=== PATIENT | male | born 1955 | race African-American/Black ===

== ENCOUNTER 2023-09-20 09:57 | Emergency (ER) | payer MEDICARE, OTHER ==
[2023-09-20] MEDS ORDERED: Labetalol HCl 100 MG/20 ML VIAL ONE (10:38)
[2023-09-20 10:57] LABS: #Eosinphils 0.2 10x3/uL (0.0-0.5); #Monocytes 0.5 10x3/uL (0.0-1.1); #Neutrophils 2.5 10x3/uL (1.5-8.4); %Basophils 0.9 % (0.0-2.0); %Eosinophils 4.5 % (0.0-6.0); %Lymphocytes 29.7 % (18.0-47.0); %Monocytes 11.6 % (0.0-10.0); %Neutrophils 53.1 % (40.0-75.0); Hematocrit 32.3 % (38.8-50.0); Hemoglobin 10.4 g/dL (13.5-17.5); Mean Corpuscular HGB CONC 32.2 g/dL (32.0-36.0); Mean Corpuscular Hemoglobin 27.4 pg (27.0-33.0); Mean Platelet Volume 10.2 fl (7.4-10.4); Platelet Count 186 10x3/uL (150-450); RBC Distribution Width 15.8 % (11.5-14.5); White Blood Cell (WBC) Count 4.6 10x3/uL (3.5-10.5)
[2023-09-20 11:21] LABS: ALT (SGPT) 47 U/L (8-55); AST (SGOT) 53 U/L (5-34); Albumin 3.3 g/dL (3.4-4.8); Alkaline Phosphatase 238 U/L (40-110); Anion Gap 13 mmol/L (10-20); BUN (Urea Nitrogen) 27 mg/dL (8.4-25.7); Bilirubin, Total 0.4 mg/dL (0.2-1.2); Calc. Creatinine Clearance 0 mL/min (70-130); Calcium 8.6 mg/dL (7.8-10.44); Carbon Dioxide 22 mmol/L (23-31); Chloride 108 mmol/L (98-107); Estimated GFR 62; Globulin 3.9 g/dL (2.4-3.5); Glucose 116 mg/dL (80-115); Potassium 4.3 mmol/L (3.5-5.1); Protein, Total 7.2 g/dL (5.8-8.1); Sodium 139 mmol/L (136-145)
[2023-09-20] MEDS ORDERED: Furosemide 40 MG (4 mL) VIAL ONE (11:58)
[2023-09-20 12:30] LABS: Troponin I 0.048 ng/mL (< 0.028)
== END 2023-09-20 12:57 | disposition home or self-care (01) ==
LOC: CSHERS 09:57
DX: I11.0 Hypertensive heart disease with heart failure (principal); I50.9 Heart failure, unspecified; E11.9 Type 2 diabetes mellitus without complications; F17.210 Nicotine dependence, cigarettes, uncomplicated
CPT/HCPCS: 71045; 80053; 83880; 84484; 85025; 93005; 96374; J1940

== ENCOUNTER 2024-07-08 13:09 | Inpatient (IN) | payer MEDICARE, OTHER ==
[2024-07-08] MEDS ORDERED: Furosemide 40 MG (4 mL) VIAL ONE (13:37)
[2024-07-08] MEDS ORDERED: Nitroglycerin 2% Ointment 1 INCH/1 GM Packet ONE (13:38)
[2024-07-08] MEDS ORDERED: Aspirin Chewable 81 MG TAB ONE (13:38)
[2024-07-08 13:57] LABS: Bilirubin Neg (Negative); Blood, Urine Negative (Negative); Clarity Cloudy (Clear); Glucose, Urine (Dipstick) >=1000 mg/dL (Negative); Ketone, Urine 15 mg/dL (Negative); Leukocyte Negative (Negative); Nitrite Negative (Negative); Protein, Urine (Dipstick) 100 mg/dl (Neg-Trace); Urobilinogen Normal mg/dL (Less than 2)
[2024-07-08 13:59] LABS: #Basophils 0.03 10x3/uL (0.0-0.2); #Eosinophils 0.18 10x3/uL (0.0-0.5); #Monocytes 0.61 10x3/uL (0.0-1.1); #Neutrophils 3.19 10x3/uL (1.5-8.4); %Basophils 0.6 % (0.0-2.0); %Eosinophils 3.3 % (0.0-6.0); %Lymphocytes 25.6 % (18.0-47.0); %Monocytes 11.3 % (0.0-10.0); %Neutrophils 58.8 % (40.0-75.0); Hematocrit 37.3 % (38.8-50.0); Hemoglobin 11.8 g/dL (13.5-17.5); Mean Corpuscular HGB CONC 31.6 g/dL (32.0-36.0); Mean Corpuscular Hemoglobin 28.2 pg (27.0-33.0); Mean Corpuscular Volume 89.2 fL (81.2-95.1); Mean Platelet Volume 10.7 fL (7.4-10.4); Platelet Count 173 10x3/uL (150-450); RBC Distribution Width 15.8 % (11.5-14.5); Red Blood Cell (RBC) Count 4.18 10x6/uL (4.32-5.72); White Blood Cell (WBC) Count 5.4 10x3/uL (3.5-10.5)
[2024-07-08 14:15] LABS: ALT (SGPT) 39 U/L (8-55); AST (SGOT) 50 U/L (5-34); Albumin 3.4 g/dL (3.4-4.8); Alkaline Phosphatase 116 U/L (40-110); Anion Gap 17 mmol/L (10-20); BUN (Urea Nitrogen) 22 mg/dL (8.4-25.7); Bilirubin, Total 0.7 mg/dL (0.2-1.2); Calc. Creatinine Clearance 0 mL/min (70-130); Calcium 8.9 mg/dL (7.8-10.44); Carbon Dioxide 21 mmol/L (23-31); Chloride 110 mmol/L (98-107); Estimated GFR 51; Globulin 3.6 g/dL (2.4-3.5); Glucose 120 mg/dL (80-115); Potassium 4.3 mmol/L (3.5-5.1); Sodium 144 mmol/L (136-145)
[2024-07-08 14:27] LABS: CAUTI Indications for Culture Urological Procedure
[2024-07-08 14:28] LABS: Bacteria/HPF 4+ HPF (None Seen); RBC/HPF None Seen HPF (0-3); Squamous Epithelial None Seen HPF (0-3); WBC/HPF 0-3 HPF (0-3)
[2024-07-08 14:29] LABS: Urine Culture Reflex Yes Yes
[2024-07-08 14:48] LABS: Critical Call Chem Troponin I SJOS.OD AT 1448
[2024-07-08] MEDS ORDERED: Dextrose 50% Abboject 50 ML SYRINGE SLOW IVP PRN (16:40)
[2024-07-08] MEDS ORDERED: Glucagon 1 MG/ML KIT IM PRN (16:40)
[2024-07-08] MEDS ORDERED: Dextrose 5% in Water 1,000 ML IV PRN (16:40)
[2024-07-08] MEDS ORDERED: Carvedilol 25 MG TAB ONE (17:13)
[2024-07-08] MEDS: Carvedilol 25 MG TAB PO SCH (18:15)
[2024-07-08] MEDS: Spironolactone 25 MG TAB PO SCH (18:23)
[2024-07-08] MEDS: Sacubitril 49 MG/Valsartan 51 MG TABLET PO SCH (21:59)
[2024-07-09 03:20] LABS: #Basophils 0.04 10x3/uL (0.0-0.2); #Eosinophils 0.24 10x3/uL (0.0-0.5); #Monocytes 0.68 10x3/uL (0.0-1.1); %Basophils 0.8 % (0.0-2.0); %Eosinophils 4.8 % (0.0-6.0); %Lymphocytes 25.7 % (18.0-47.0); %Monocytes 13.7 % (0.0-10.0); %Neutrophils 54.6 % (40.0-75.0); Hemoglobin 10.5 g/dL (13.5-17.5); Mean Corpuscular HGB CONC 32.8 g/dL (32.0-36.0); Mean Corpuscular Hemoglobin 29.1 pg (27.0-33.0); Mean Corpuscular Volume 88.6 fL (81.2-95.1); Platelet Count 157 10x3/uL (150-450); RBC Distribution Width 15.8 % (11.5-14.5); Red Blood Cell (RBC) Count 3.61 10x6/uL (4.32-5.72)
[2024-07-09 03:44] LABS: Anion Gap 18 mmol/L (10-20); BUN (Urea Nitrogen) 29 mg/dL (8.4-25.7); Calc. Creatinine Clearance 58 mL/min (70-130); Calcium 8.7 mg/dL (7.8-10.44); Carbon Dioxide 20 mmol/L (23-31); Chloride 109 mmol/L (98-107); Estimated GFR 42; Glucose 195 mg/dL (80-115); Potassium 3.9 mmol/L (3.5-5.1); Sodium 143 mmol/L (136-145)
[2024-07-09] MEDS ORDERED: hydrALAZINE 25 MG TAB ONE (04:16)
[2024-07-09] MEDS: hydrALAZINE 25 MG TAB PO PRN (04:24)
[2024-07-09] MEDS ORDERED: Furosemide 40 MG (4 mL) VIAL ONE ×2 (05:26→13:13)
[2024-07-09] MEDS: Furosemide 40 MG (4 mL) VIAL SLOW IVP SCH (05:38)
[2024-07-09 06:22] VITALS: BMI 27.1
[2024-07-09] MEDS: Spironolactone 25 MG TAB PO SCH (08:06)
[2024-07-09] MEDS ORDERED: Enoxaparin 40 MG (0.4 mL) SYRINGE ONE (08:53)
[2024-07-09] MEDS ORDERED: Carvedilol 25 MG TAB ONE (08:54)
[2024-07-09] MEDS: Sotalol HCl 80 MG TAB PO SCH (09:06)
[2024-07-09] MEDS: Enoxaparin 40 MG (0.4 mL) SYRINGE SC SCH (09:07)
[2024-07-09] MEDS: Insulin Lispro 100 UNIT/ML 10 ML VIAL SC PRN (16:29)
[2024-07-10 04:22] LABS: Anion Gap 17 mmol/L (10-20); BUN (Urea Nitrogen) 31 mg/dL (8.4-25.7); Calc. Creatinine Clearance 61 mL/min (70-130); Calcium 8.9 mg/dL (7.8-10.44); Carbon Dioxide 24 mmol/L (23-31); Chloride 105 mmol/L (98-107); Estimated GFR 45; Glucose 163 mg/dL (80-115); Potassium 3.9 mmol/L (3.5-5.1); Sodium 142 mmol/L (136-145)
[2024-07-10] MEDS: cefTRIAXone\\ROCEPHIN 1 GM in Sodium Chloride 0.9% 100 ML IVPB SCH (08:57)
[2024-07-10] MEDS: Aspirin 81 mg Enteric Coated Tablet PO SCH (08:58)
[2024-07-10] MEDS: hydrALAZINE 25 MG TAB PO SCH (14:43)
[2024-07-10] MEDS: Insulin Lispro 100 UNIT/ML 10 ML VIAL SC PRN (20:43)
[2024-07-11 04:35] LABS: Anion Gap 16 mmol/L (10-20); BUN (Urea Nitrogen) 30 mg/dL (8.4-25.7); Calc. Creatinine Clearance 60 mL/min (70-130); Calcium 8.8 mg/dL (7.8-10.44); Carbon Dioxide 24 mmol/L (23-31); Chloride 103 mmol/L (98-107); Estimated GFR 46; Glucose 145 mg/dL (80-115); Potassium 3.5 mmol/L (3.5-5.1); Sodium 139 mmol/L (136-145)
[2024-07-11 12:17] VITALS: BP 151/84; TEMP 98.3
== END 2024-07-11 14:30 | disposition home or self-care (01) | DRG 291 ==
LOC: CSHERS 13:09 → CSHERHOLD 15:36 → CSHTELE 07-09 17:56
PROVIDERS: ADMIT Internal Medicine; ATTEND Internal Medicine
DX: I11.0 Hypertensive heart disease with heart failure (principal); I50.23 Acute on chronic systolic (congestive) heart failure; E11.9 Type 2 diabetes mellitus without complications; I25.10 Atherosclerotic heart disease of native coronary artery without angina pectoris; Z88.8 Allergy status to other drugs, medicaments and biological substances; Z85.46 Personal history of malignant neoplasm of prostate; Z79.84 Long term (current) use of oral hypoglycemic drugs; Z79.4 Long term (current) use of insulin; Z79.899 Other long term (current) drug therapy; Z79.82 Long term (current) use of aspirin; Z95.810 Presence of automatic (implantable) cardiac defibrillator; N28.9 Disorder of kidney and ureter, unspecified; E78.2 Mixed hyperlipidemia; Z87.891 Personal history of nicotine dependence
CPT/HCPCS: 36415; 36416; 71045; 80048; 80053; 81001; 83880; 84484; 85025; 87077; 87086; 87186; 93005; 96374; J0696; J1650; J1815; J1940

== ENCOUNTER 2024-08-17 05:30 | Inpatient (IN) | payer MEDICARE, OTHER ==
[2024-08-17] MEDS ORDERED: Furosemide 40 MG (4 mL) VIAL ONE ×2 (05:38→15:31)
[2024-08-17] MEDS ORDERED: Nitroglycerin 2% Ointment 1 INCH/1 GM Packet ONE (05:39)
[2024-08-17 05:49] LABS: #Basophils 0.05 10x3/uL (0.0-0.2); #Eosinophils 0.16 10x3/uL (0.0-0.5); #Monocytes 0.54 10x3/uL (0.0-1.1); #Neutrophils 2.92 10x3/uL (1.5-8.4); %Basophils 0.9 % (0.0-2.0); %Lymphocytes 30.5 % (18.0-47.0); %Monocytes 10.2 % (0.0-10.0); Hematocrit 36.4 % (38.8-50.0); Hemoglobin 12.1 g/dL (13.5-17.5); Mean Corpuscular HGB CONC 33.2 g/dL (32.0-36.0); Mean Corpuscular Hemoglobin 30.1 pg (27.0-33.0); Mean Corpuscular Volume 90.5 fL (81.2-95.1); Mean Platelet Volume 10.7 fL (7.4-10.4); Platelet Count 202 10x3/uL (150-450); RBC Distribution Width 15.5 % (11.5-14.5); Red Blood Cell (RBC) Count 4.02 10x6/uL (4.32-5.72); White Blood Cell (WBC) Count 5.31 10x3/uL (3.5-10.5)
[2024-08-17 06:04] LABS: ALT (SGPT) 14 U/L (Less than 45); AST (SGOT) 30 U/L (11-34); Alkaline Phosphatase 118 U/L (40-110); Anion Gap 17 mmol/L (10-20); BUN (Urea Nitrogen) 30 mg/dL (8.4-25.7); Bilirubin, Total 0.4 mg/dL (0.3-1.2); Calc. Creatinine Clearance 0 mL/min (70-130); Calcium 8.8 mg/dL (7.8-10.44); Carbon Dioxide 16 mmol/L (23-31); Chloride 112 mmol/L (98-107); Estimated GFR 40; Globulin 4.2 g/dL (2.4-3.5); Glucose 196 mg/dL (80-115); Protein, Total 7.2 g/dL (5.8-8.1); Sodium 141 mmol/L (136-145)
[2024-08-17] MEDS ORDERED: hydrALAZINE 20 MG/ML VIAL ONE ×2 (06:23→15:31)
[2024-08-17 06:31] LABS: Critical Call Chem Troponin I NUR.AEB@0630; Troponin I 0.588 ng/mL (< 0.028)
[2024-08-17] MEDS ORDERED: Aspirin Chewable 81 MG TAB ONE (06:37)
[2024-08-17] MEDS: Sacubitril 24MG/Valsartan 26 MG TAB PO SCH (09:35)
[2024-08-17] MEDS: Empagliflozin 10 MG TAB PO SCH (09:51)
[2024-08-17] MEDS ORDERED: Dextrose 5% in Water 1,000 ML IV PRN (10:07)
[2024-08-17] MEDS ORDERED: Glucagon 1 MG/ML KIT IM PRN (10:07)
[2024-08-17] MEDS ORDERED: Dextrose 50% Abboject 50 ML SYRINGE SLOW IVP PRN (10:07)
[2024-08-17] MEDS: Heparin 5,000 UNITS/ML VIAL SC SCH (15:31)
[2024-08-17] MEDS: Furosemide 40 MG (4 mL) VIAL SLOW IVP SCH (15:31)
[2024-08-17] MEDS: hydrALAZINE 20 MG/ML VIAL SLOW IVP PRN (15:32)
[2024-08-17] MEDS ORDERED: hydrALAZINE 20 MG/ML VIAL SLOW IVP PRN (17:45)
[2024-08-17] MEDS: hydrALAZINE 20 MG/ML VIAL SLOW IVP SCH (18:25)
[2024-08-17] MEDS: Atorvastatin Calcium 40 MG TAB PO SCH (21:12)
[2024-08-17] MEDS: Carvedilol 25 MG TAB PO SCH (21:12)
[2024-08-17] MEDS: Acetaminophen 325 MG TAB PO PRN (21:40)
[2024-08-17] MEDS: Insulin Lispro 100 UNIT/ML 10 ML VIAL SC PRN (21:53)
[2024-08-18 04:46] LABS: #Basophils 0.03 10x3/uL (0.0-0.2); #Eosinophils 0.12 10x3/uL (0.0-0.5); #Monocytes 0.61 10x3/uL (0.0-1.1); #Neutrophils 2.31 10x3/uL (1.5-8.4); %Basophils 0.7 % (0.0-2.0); %Eosinophils 2.7 % (0.0-6.0); %Lymphocytes 30.2 % (18.0-47.0); %Monocytes 13.8 % (0.0-10.0); %Neutrophils 52.1 % (40.0-75.0); Hematocrit 35.2 % (38.8-50.0); Hemoglobin 11.8 g/dL (13.5-17.5); Mean Corpuscular HGB CONC 33.5 g/dL (32.0-36.0); Mean Corpuscular Hemoglobin 28.8 pg (27.0-33.0); Mean Corpuscular Volume 85.9 fL (81.2-95.1); Mean Platelet Volume 11.1 fL (7.4-10.4); Platelet Count 171 10x3/uL (150-450); RBC Distribution Width 15.3 % (11.5-14.5); White Blood Cell (WBC) Count 4.43 10x3/uL (3.5-10.5)
[2024-08-18 05:13] LABS: Anion Gap 14 mmol/L (10-20); BUN (Urea Nitrogen) 31 mg/dL (8.4-25.7); Calc. Creatinine Clearance 0 mL/min (70-130); Carbon Dioxide 21 mmol/L (23-31); Chloride 109 mmol/L (98-107); Estimated GFR 43; Glucose 180 mg/dL (80-115); Potassium 3.4 mmol/L (3.5-5.1); Sodium 141 mmol/L (136-145)
[2024-08-18] MEDS: Sotalol HCl 80 MG TAB PO SCH (08:53)
[2024-08-18] MEDS: Aspirin 81 mg Enteric Coated Tablet PO SCH (08:53)
[2024-08-18] MEDS: Empagliflozin 10 MG TAB PO SCH (08:53)
[2024-08-18 09:55] VITALS: BMI 26.2
[2024-08-18] MEDS: HumuLIN 70/30 100 Unit/ml 10 ml Vial SC SCH (18:16)
[2024-08-18] MEDS ORDERED: Sacubitril 24MG/Valsartan 26 MG TAB PO SCH (21:00)
[2024-08-18] MEDS: Sacubitril 49 MG/Valsartan 51 MG TABLET PO SCH (21:07)
[2024-08-19] MEDS: HumuLIN 70/30 100 Unit/ml 10 ml Vial SC SCH (08:58)
[2024-08-19 09:47] LABS: Anion Gap 15 mmol/L (10-20); BUN (Urea Nitrogen) 33 mg/dL (8.4-25.7); Calc. Creatinine Clearance 59 mL/min (70-130); Calcium 8.6 mg/dL (7.8-10.44); Carbon Dioxide 25 mmol/L (23-31); Chloride 103 mmol/L (98-107); Estimated GFR 44; Glucose 165 mg/dL (80-115); Potassium 3.7 mmol/L (3.5-5.1); Sodium 139 mmol/L (136-145)
[2024-08-20 05:22] LABS: #Basophils 0.04 10x3/uL (0.0-0.2); #Eosinophils 0.15 10x3/uL (0.0-0.5); #Monocytes 0.78 10x3/uL (0.0-1.1); #Neutrophils 1.75 10x3/uL (1.5-8.4); %Basophils 0.9 % (0.0-2.0); %Eosinophils 3.2 % (0.0-6.0); %Lymphocytes 40.9 % (18.0-47.0); %Monocytes 16.9 % (0.0-10.0); %Neutrophils 37.9 % (40.0-75.0); Hematocrit 37.1 % (38.8-50.0); Hemoglobin 12.4 g/dL (13.5-17.5); Mean Corpuscular HGB CONC 33.4 g/dL (32.0-36.0); Mean Corpuscular Volume 86.7 fL (81.2-95.1); Mean Platelet Volume 11.3 fL (7.4-10.4); Platelet Count 195 10x3/uL (150-450); RBC Distribution Width 15.3 % (11.5-14.5); Red Blood Cell (RBC) Count 4.28 10x6/uL (4.32-5.72); White Blood Cell (WBC) Count 4.62 10x3/uL (3.5-10.5)
[2024-08-20 05:44] LABS: Anion Gap 17 mmol/L (10-20); BUN (Urea Nitrogen) 43 mg/dL (8.4-25.7); Calc. Creatinine Clearance 51 mL/min (70-130); Calcium 8.6 mg/dL (7.8-10.44); Carbon Dioxide 24 mmol/L (23-31); Chloride 103 mmol/L (98-107); Estimated GFR 38; Glucose 132 mg/dL (80-115); Potassium 3.7 mmol/L (3.5-5.1); Sodium 140 mmol/L (136-145)
[2024-08-20] MEDS: Furosemide 40 MG TAB PO SCH (08:58)
[2024-08-20] MEDS ORDERED: Furosemide 20 MG TAB PO SCH (09:00)
[2024-08-21 05:18] LABS: #Basophils Less than 0.03 10x3/uL (0.0-0.2); #Eosinophils 0.19 10x3/uL (0.0-0.5); #Monocytes 0.75 10x3/uL (0.0-1.1); %Basophils 0.4 % (0.0-2.0); %Eosinophils 3.6 % (0.0-6.0); %Lymphocytes 28.5 % (18.0-47.0); %Monocytes 14.2 % (0.0-10.0); %Neutrophils 53.1 % (40.0-75.0); Hematocrit 37.9 % (38.8-50.0); Hemoglobin 12.3 g/dL (13.5-17.5); Mean Corpuscular HGB CONC 32.5 g/dL (32.0-36.0); Mean Corpuscular Hemoglobin 28.2 pg (27.0-33.0); Mean Corpuscular Volume 86.9 fL (81.2-95.1); Mean Platelet Volume 11.2 fL (7.4-10.4); Platelet Count 197 10x3/uL (150-450); RBC Distribution Width 15.3 % (11.5-14.5); Red Blood Cell (RBC) Count 4.36 10x6/uL (4.32-5.72); White Blood Cell (WBC) Count 5.27 10x3/uL (3.5-10.5)
[2024-08-21 05:27] LABS: Anion Gap 16 mmol/L (10-20); BUN (Urea Nitrogen) 50 mg/dL (8.4-25.7); Calc. Creatinine Clearance 50 mL/min (70-130); Calcium 8.8 mg/dL (7.8-10.44); Carbon Dioxide 24 mmol/L (23-31); Chloride 103 mmol/L (98-107); Estimated GFR 37; Glucose 96 mg/dL (80-115); Potassium 3.7 mmol/L (3.5-5.1); Sodium 139 mmol/L (136-145)
[2024-08-22 04:04] LABS: Hematocrit 35.2 % (38.8-50.0); Hemoglobin 11.8 g/dL (13.5-17.5); Mean Corpuscular HGB CONC 33.5 g/dL (32.0-36.0); Mean Corpuscular Hemoglobin 28.8 pg (27.0-33.0); Mean Corpuscular Volume 85.9 fL (81.2-95.1); Mean Platelet Volume 10.2 fL (7.4-10.4); Platelet Count 183 10x3/uL (150-450); RBC Distribution Width 15.3 % (11.5-14.5); White Blood Cell (WBC) Count 4.63 10x3/uL (3.5-10.5)
[2024-08-22 04:16] LABS: Anion Gap 15 mmol/L (10-20); BUN (Urea Nitrogen) 50 mg/dL (8.4-25.7); Calc. Creatinine Clearance 50 mL/min (70-130); Calcium 8.4 mg/dL (7.8-10.44); Carbon Dioxide 25 mmol/L (23-31); Chloride 103 mmol/L (98-107); Estimated GFR 36; Glucose 106 mg/dL (80-115); Potassium 3.9 mmol/L (3.5-5.1); Sodium 139 mmol/L (136-145)
[2024-08-22 04:34] LABS: Anisocytosis SLIGHT = 6-15 cells (100X) (0-5/hpf); Band 4 % (5-11); Eosinophils 4 % (0-10); Lymphocytes 26 % (21-51); MDiff Complete? YES; Monocytes 17 % (0-10); Neutrophil 45 % (42-75); Ovalocytes SLIGHT = 2-5 cells (100X) (0-1/hpf); Platelet Adequacy Comment Appears Adequate; Reactive Lymphocytes 4 % (0-10)
[2024-08-22 11:17] VITALS: BP 113/60; TEMP 98.9
== END 2024-08-22 15:00 | disposition home or self-care (01) | DRG 280 ==
LOC: CSHERS 05:30 → CSHERHOLD 08:46
PROVIDERS: ADMIT Internal Medicine; ATTEND Internal Medicine
DX: I13.0 Hypertensive heart and chronic kidney disease with heart failure and stage 1 through stage 4 chronic kidney disease, or unspecified chronic kidney disease (principal); I50.43 Acute on chronic combined systolic (congestive) and diastolic (congestive) heart failure; I21.A1 Myocardial infarction type 2; N17.9 Acute kidney failure, unspecified; E11.22 Type 2 diabetes mellitus with diabetic chronic kidney disease; F17.210 Nicotine dependence, cigarettes, uncomplicated; E78.5 Hyperlipidemia, unspecified; I16.0 Hypertensive urgency; M54.30 Sciatica, unspecified side; N18.9 Chronic kidney disease, unspecified; I25.10 Atherosclerotic heart disease of native coronary artery without angina pectoris; Z88.8 Allergy status to other drugs, medicaments and biological substances; Z95.810 Presence of automatic (implantable) cardiac defibrillator; Z71.6 Tobacco abuse counseling
CPT/HCPCS: 36415; 36416; 71045; 71046; 80048; 80053; 83880; 84484; 85025; 93005; 94760; 96374; 96375; J0360; J1644; J1815; J1940